=== PATIENT | male | born 1965 | race Caucasian/White ===

== ENCOUNTER 2023-12-09 11:21 | Day surgery (SDC) | payer BC, SELFPAY ==
[2023-12-02 13:10] VITALS: BMI 31.0
[2023-12-02 13:38] LABS: % Basophils 0.8 % (0-2); % Immature Granulocytes 0.3 % (0-0.5); % Lymphocytes 36.4 % (20.5-51.1); % Monocytes 9.3 % (1.7-9.3); % Neutrophils 51.2 % (42.2-75.2); Absolute Basophils 0.1 10^3/uL (0-0.2); Absolute Eosinophils 0.2 10^3/uL (0-0.7); Absolute Lymphocytes 3.5 10^3/uL (1.2-3.4); Absolute Monocytes 0.9 10^3/uL (0.1-0.6); Absolute Neutrophils 4.9 10^3/uL (1.4-6.5); Hematocrit 38.9 % (39.0-52.0); Hemoglobin 13.2 g/dL (13.0-18.0); Mean Corp Hgb Conc. 33.9 g/dL (33.0-37.0); Mean Corpuscular Hgb 28.5 pg (27.0-31.0); Mean Platelet Volume 8.1 fL (7.4-10.4); Nucleated Red Blood Cells % 0 % (-); Platelet Count 315 10^3/uL (130-400); Red Blood Cell Count 4.63 10^6/uL (4.70-6.10); Red Cell Dist. Width 13.7 % (11.5-14.5); White Blood Cell Count 9.6 10^3/uL (4.8-10.8)
[2023-12-02 13:54] LABS: ALT (SGPT) 42 U/L (0-50); AST (SGOT) 32 U/L (17-59); Albumin 4.4 g/dl (3.5-5.0); Alkaline Phosphatase 83 U/L (38-126); Blood Urea Nitrogen 22 mg/dl (9-20); Calcium 9.5 mg/dl (8.4-10.2); Carbon Dioxide 18 mmol/L (22-30); Chloride 107 mmol/L (98-107); Estimated Creatinine Clearance 82 ml/min; Glucose 87 mg/dl (70-99); Potassium 4.5 mmol/L (3.5-5.1); Sodium 140 mmol/L (135-145); Total Bilirubin 0.5 mg/dl (0.2-1.3); Total Protein 7.6 g/dl (6.3-8.2); eGFR > 60.00
[2023-12-09] VITALS (14 sets, daily range): BP systolic 116–155; BP diastolic 60–102; BMI 31.0
[2023-12-09] MEDS: NSS 238 ML IV (12:16)
--- NOTE | 2023-12-09 16:18 | ITS.CL.CATH ---
[facility] - Catheterization
Cardiac Catheterization
Procedure Report:
CARDIAC CATHETERIZATION REPORT
Date of Procedure: 12/09/2023
Referring: Jose E Goddard MD
Indication: Chest pain with abnormal CT /PET scan
�
HEMODYNAMIC DATA
AO: 114/70
LV: 114/17
�
LEFT VENTRICULOGRAPHY: Normal left ventricular wall motion with EF 68%. There resting LVOT gradient appears to be no more than 5-10mm Hg
�
CORONARY ANGIOGRAPHY
Dominance: Right
Left Main: Normal
LAD: Diffuse calcification with mild luminal irregularities
Circumflex: There is a small ramus intermedius branch without disease. Mild luminal irregularities in the circumflex proper. The small OM1 and medium sized OM 2 are free of significant stenosis. The large OM3 has 30% ostial stenosis.
RCA: The RCA is dominant with trivial luminal irregularities
�
Closure Device: None-the procedure was performed via the right radial artery. The Harris's test was normal prior to the procedure.
�
Radiation (mGy): 220
DAP (cm2.Gy): 15.9
Fluoroscopy time: 2.1 minutes
�
CONCLUSIONS
1:�Normal left ventricular function with EF 68%
2:�Significant coronary calcification without obstructive lesions
3. Continue aspirin and statin with goal LDL less than 70
�
�
Copy to: Jose E Goddard MD, OBINNA Zapata
�
José Steward MD, [facility], [facility]
[2023-12-09] MEDS: NSS 1000 IV (16:19)
--- NOTE | 2023-12-09 18:10 | PTCARENOTE ---
Pt is eating dinner currently with most recent blood pressure of 132/102. Will reassess blood pressure after eating.
== END 2023-12-09 19:15 | disposition home or self-care (01) ==
LOC: CATH 11:21
PROVIDERS: ATTENDING PHYSICIAN Internal Medicine Cardiovascular Disease; FAMILY PHYSICIAN Nurse Practitioner Family; OTHER PHYSICIAN Internal Medicine Cardiovascular Disease
DX: I25.119 Atherosclerotic heart disease of native coronary artery with unspecified angina pectoris (principal); R55 Syncope and collapse; R94.39 Abnormal result of other cardiovascular function study; I10 Essential (primary) hypertension; E78.5 Hyperlipidemia, unspecified; K50.90 Crohn's disease, unspecified, without complications; Z79.82 Long term (current) use of aspirin
CPT/HCPCS: 36415; 80053; 85025; 93005; 93458; C1894; Q9967

== ENCOUNTER → 2023-12-11 07:17 | Outpatient (REF) | payer BC, SELFPAY ==
[2023-12-11 09:21] LABS: Blood Urea Nitrogen 19 mg/dl (9-20); Calcium 9.5 mg/dl (8.4-10.2); Carbon Dioxide 24 mmol/L (22-30); Chloride 103 mmol/L (98-107); Glucose 83 mg/dl (70-99); Potassium 4.4 mmol/L (3.5-5.1); Sodium 140 mmol/L (135-145); eGFR > 60.00
== END ==
LOC: REG 07:17
PROVIDERS: ATTENDING PHYSICIAN Physician Assistant Medical; FAMILY PHYSICIAN Nurse Practitioner Family
DX: N28.9 Disorder of kidney and ureter, unspecified (principal)
CPT/HCPCS: 36415; 80048